=== PATIENT | male | born 1935 | race African-American/Black ===

== ENCOUNTER → 2016-10-26 | Outpatient (CLI) | payer OTHER ==
[~2016-10-26] MED LIST: BARIUM SULFATE 450ML ORAL SUSP ONE
== END | disposition home or self-care (01) ==
LOC: RAD 08:55
PROVIDERS: ATTEND Specialist
DX: K21.9 Gastro-esophageal reflux disease without esophagitis (principal); K44.9 Diaphragmatic hernia without obstruction or gangrene
CPT/HCPCS: 74220